=== PATIENT | female | born 2005 | race Caucasian/White ===

== ENCOUNTER 2024-04-01 12:43 | Outpatient (CLI) | payer OTHER, SELFPAY | END 2024-04-01 12:44 | disposition home or self-care (01) | LOC: INJ CL 12:48 | PROVIDERS: Visit Provider Family Medicine | DX: M54.16 Radiculopathy, lumbar region (principal); M51.26 Other intervertebral disc displacement, lumbar region | CPT/HCPCS: 62323; J0702; Q9966 ==

== ENCOUNTER 2024-04-26 10:35 | Outpatient (CLI) | payer OTHER, SELFPAY | END 2024-04-26 10:36 | disposition home or self-care (01) | LOC: RAD 10:36 → INJ CL 10:47 | PROVIDERS: Visit Provider Family Medicine | DX: M54.16 Radiculopathy, lumbar region (principal); M51.26 Other intervertebral disc displacement, lumbar region | CPT/HCPCS: 64483; J1100; Q9966 ==